=== PATIENT | male | born 1995 | race African-American/Black ===

== ENCOUNTER 2016-11-07 21:49 | Inpatient (IN) | payer MEDICAID, OTHER ==
[~2016-11-07] VITALS: Ht 190.5 cm; Wt 78.3 kg
[~2016-11-07 21:49] MED LIST: ADDE10 PO
[2016-11-07 22:12] LABS: BASOPHILS # (AUTO) 0.03 K/uL (0.00-0.20); BASOPHILS % (AUTO) 0.5 % (0.0-2.0); EOSINOPHILS # (AUTO) 0.01 K/uL (0.00-0.70); EOSINOPHILS % (AUTO) 0.23 % (1.0-6.0); HEMATOCRIT 49.5 % (41-53); HEMOGLOBIN 16.3 g/dL (13.5-17.5); LYMPHOCYTES # (AUTO) 1.6 K/uL (1.0-4.8); LYMPHOCYTES % (AUTO) 24.4 % (22.0-44.0); MEAN CORPUSCULAR HEMOGLOBIN 29.8 pg (26.0-34.0); MEAN CORPUSCULAR HGB CONC 32.8 G/dL (31.0-37.0); MEAN CORPUSCULAR VOLUME 91 fL (80-100); MONOCYTES # (AUTO) 0.4 K/uL (0.1-1.0); MONOCYTES % (AUTO) 6.4 % (2.0-9.0); NEUTROPHILS # (AUTO) 4.4 K/uL (1.8-7.7); NEUTROPHILS % (AUTO) 68.5 % (40.0-70.0); PLATELET COUNT (AUTO) 215 K/uL (150-450); RED BLOOD CELL COUNT(AUTO) 5.45 MIL/uL (4.50-5.90); RED CELL DISTRIBUTION WIDTH 12.8 % (11.5-14.5); WHITE BLOOD COUNT (AUTO) 6.5 K/uL (4.5-11.0)
[2016-11-07 22:26] LABS: ANION GAP 13 mmol/L (8-16); CALCIUM, TOTAL 9.3 mg/dL (8.8-10.5); CARBON DIOXIDE 26 mmol/L (22-29); CHLORIDE 101 mmol/L (98-107); CREATININE 1.25 mg/dL (0.60-1.30); GLOMERULAR FILTR. RATE CALC > 60 mL/min (>60); POTASSIUM 3.9 mmol/L (3.5-5.1); SODIUM SERUM 140 mmol/L (136-145); UREA NITROGEN, BLOOD 10 mg/dL (7-18)
[2016-11-07 22:32] LABS: ALANINE AMINOTRANSFERASE 29 U/L (12-78); ALBUMIN 4.6 g/dL (3.4-5.0); ASPARTATE AMINOTRANSFERASE 19 U/L (15-37); BILIRUBIN,TOTAL 0.7 mg/dL (0.1-1.0); TOTAL PROTEIN, SERUM 7.9 g/dL (6.4-8.2)
[2016-11-08] MEDS ORDERED: HALOPERIDOL 5 MG TABLET PO PRN (00:30)
[2016-11-08 01:49] LABS: APPEARANCE,URINE TURBID (CLEAR); GLUCOSE, URINE (UA) NEGATIVE (NEGATIVE); KETONES,URINE NEGATIVE (NEGATIVE); LEUKOCYTE ESTERASE ,URINE NEGATIVE (NEGATIVE); OCCULT BLOOD,URINE NEGATIVE (NEGATIVE); PROTEIN,URINE NEGATIVE (NEGATIVE)
[2016-11-08 01:55] LABS: ADD UA MICROSCOPIC NO
[2016-11-08 02:27] VITALS: BP 150/91
[2016-11-08 07:34] LABS: CHOL/HDL RATIO 2.9 (4.2-7.3)
[2016-11-08] MEDS ORDERED: ALBUTEROL SULFATE HFA 90 MCG/PUFF 8 GM INHALER IH PRN (09:45)
[2016-11-08] MEDS ORDERED: CloNIDine HCL 0.1 MG TABLET PO PRN (09:45)
[2016-11-08] MEDS ORDERED: ACETAMINOPHEN 325 MG TABLET PO PRN (09:45)
[2016-11-08] MEDS ORDERED: LOPERAMIDE HCL 2 MG CAPSULE PO PRN (09:45)
[2016-11-08] MEDS ORDERED: ONDANSETRON HCL 4 MG TABLET PO PRN (09:45)
[2016-11-08] MEDS ORDERED: MAGNESIUM HYDROXIDE SUSPENSION 30 ML UDCUP PO PRN (09:45)
[2016-11-08] MEDS ORDERED: BACITRACIN 28.4 GM OINTMENT TP PRN (09:45)
[2016-11-08] MEDS ORDERED: BENZOCAINE/MENTHOL LOZENGE [8 LOZENGES/PACKET] MM PRN (09:45)
[2016-11-08] MEDS ORDERED: PETROLATUM,WHITE 71 GM JELLY TP PRN (09:45)
[2016-11-08] MEDS ORDERED: MAG HYDROX/AL HYDROX/SIMETH ES 30 ML SUSPENSION UDCUP PO PRN (09:45)
[2016-11-08] MEDS: IBUPROFEN 600 MG TABLET PO PRN (12:12)
[2016-11-08] MEDS: SERTRALINE HCL 50 MG TABLET PO SCH (12:12)
[2016-11-08 12:13] VITALS: BP 132/80
[2016-11-08 13:13] VITALS: BP 129/74
[2016-11-08 16:30] VITALS: BP 134/78
[2016-11-08] MEDS: LORazepam 2 MG TABLET PO PRN (19:18)
[2016-11-08] MEDS: ZOLPIDEM TARTRATE 10 MG TABLET PO PRN (21:12)
[2016-11-09 01:00] VITALS: BP 145/82
[2016-11-09 08:26] VITALS: BP 132/76
[2016-11-09] MEDS: SERTRALINE HCL 50 MG TABLET PO SCH (09:49)
[2016-11-09] MEDS ORDERED: SERT50TA12 PO (14:35)
[2016-11-09] MEDS: LORazepam 2 MG TABLET PO PRN (16:06)
[2016-11-09 18:42] VITALS: BP 141/82
[2016-11-09 20:17] VITALS: BP 112/73
[2016-11-09] MEDS: IBUPROFEN 600 MG TABLET PO PRN (20:19)
[2016-11-09] MEDS: ZOLPIDEM TARTRATE 10 MG TABLET PO PRN (20:43)
[2016-11-10 00:26] VITALS: BP 128/79
[2016-11-10 08:00] VITALS: BP 131/69
[2016-11-10] MEDS: IBUPROFEN 600 MG TABLET PO PRN (08:09)
[2016-11-10] MEDS: SERTRALINE HCL 50 MG TABLET PO SCH (08:09)
[2016-11-10] MEDS: LORazepam 2 MG TABLET PO PRN (12:22)
== END 2016-11-10 14:15 | disposition home or self-care (01) | DRG 751 ==
LOC: EMS 21:54 → 3EI 11-08 01:16
DX: F32.3 Major depressive disorder, single episode, severe with psychotic features (principal); R45.851 Suicidal ideations; F19.90 Other psychoactive substance use, unspecified, uncomplicated; Z63.4 Disappearance and death of family member; R03.0 Elevated blood-pressure reading, without diagnosis of hypertension; R19.7 Diarrhea, unspecified; Z72.0 Tobacco use; F90.9 Attention-deficit hyperactivity disorder, unspecified type
CPT/HCPCS: 99285; G0480

== ENCOUNTER 2024-09-11 13:08 | Emergency (ER) | payer BC, MEDICAID ==
[~2024-09-11] VITALS: Ht 190.5 cm; Wt 86.4 kg
[~2024-09-11 13:08] MED LIST changes: -ADDE10 PO; +SERT-158 PO
[2024-09-11 13:12] VITALS: TEMP 98.2
[2024-09-11 13:52] LABS: BASOPHILS % (AUTO) 0.6 % (0.0-2.0); EOSINOPHILS % (AUTO) 1.1 % (1.0-6.0); HEMOGLOBIN 14.1 g/dL (13.5-17.5); LYMPHOCYTES # (AUTO) 1.7 K/uL (1.0-4.8); LYMPHOCYTES % (AUTO) 27.5 % (22.0-44.0); MEAN CORPUSCULAR HEMOGLOBIN 30.1 pg (26.0-34.0); MEAN CORPUSCULAR HGB CONC 33.5 G/dL (31.0-37.0); MEAN CORPUSCULAR VOLUME 90 fL (80-100); MONOCYTES # (AUTO) 0.5 K/uL (0.1-1.0); MONOCYTES % (AUTO) 8.2 % (2.0-9.0); NEUTROPHILS # (AUTO) 3.9 K/uL (1.8-7.7); NEUTROPHILS % (AUTO) 62.6 % (40.0-70.0); PLATELET COUNT (AUTO) 222 K/uL (150-450); RED BLOOD CELL COUNT(AUTO) 4.68 MIL/uL (4.50-5.90); WHITE BLOOD COUNT (AUTO) 6.2 K/uL (4.5-11.0)
[2024-09-11 14:00] LABS: ANION GAP 5 mmol/L (8-16); CARBON DIOXIDE 30 mmol/L (22-29); CHLORIDE 104 mmol/L (98-107); CREATININE 1.03 mg/dL (0.60-1.30); GLOMERULAR FILTR. RATE CALC > 60 mL/min (>60); GLUCOSE,RANDOM 93 mg/dL (70-110); POTASSIUM 3.8 mmol/L (3.5-5.1); SODIUM SERUM 139 mmol/L (136-145); UREA NITROGEN, BLOOD 13 mg/dL (7-18)
[2024-09-11 14:10] LABS: TROPONIN I-HIGH SENSITIVITY Less Than 4 ng/L (<76)
[2024-09-11] MEDS ORDERED: IBUP-1554 PO (15:39)
[2024-09-11] MEDS ORDERED: METH-812 PO (15:39)
[2024-09-11] MEDS ORDERED: ACET-66 PO (15:39)
[2024-09-11 16:01] VITALS: BP 107/64; PULSE 72; RESP 18; O2SAT 100
== END 2024-09-11 16:21 | disposition home or self-care (01) ==
LOC: EMS 13:19
DX: S29.012A Strain of muscle and tendon of back wall of thorax, initial encounter (principal); R07.89 Other chest pain; R53.83 Other fatigue; F17.210 Nicotine dependence, cigarettes, uncomplicated; Z88.6 Allergy status to analgesic agent; X58.XXXA Exposure to other specified factors, initial encounter; Y93.89 Activity, other specified; Y92.89 Other specified places as the place of occurrence of the external cause; Y99.8 Other external cause status
CPT/HCPCS: 71045; 80048; 84484; 85025; 93005; 99285; 36415-L1; 36415-TC